=== PATIENT | male | born 1945 | race Asian ===

== ENCOUNTER 2023-12-24 16:23 | Inpatient (IN) | payer OTHER ==
[~2023-12-24] VITALS: Ht 165.1 cm; Wt 56.7 kg
[2023-12-24 16:26] VITALS: BP 158/62; PULSE 74; RESP 18; TEMP 98; O2SAT 97
[2023-12-24 17:43] LABS: BASOPHILS % (AUTO) 0.2 % (0.0-2.0); EOSINOPHILS # (AUTO) 0.1 K/uL (0-0.4); EOSINOPHILS % (AUTO) 1.9 % (0.0-4.0); HEMATOCRIT 37.5 % (36-52); HEMOGLOBIN 12.6 g/dL (12.0-18.0); LYMPHOCYTES # (AUTO) 0.8 K/uL (2.0-11.5); LYMPHOCYTES % (AUTO) 13.2 % (20.5-51.1); MEAN CORPUSCULAR HEMOGLOBIN 32 pg (27-31); MEAN CORPUSCULAR HGB CONC 34 g/dL (33-37); MONOCYTES # (AUTO) 0.4 K/uL (0.8-1.0); MONOCYTES % (AUTO) 6.1 % (1.7-9.3); NEUTROPHILS # (AUTO) 4.5 K/uL (1.8-7.7); NEUTROPHILS % (AUTO) 78.6 % (42.2-75.2); PLATELET COUNT (AUTO) 110 K/uL (140-450); RED BLOOD CELL COUNT(AUTO) 3.95 MIL/uL (4.20-6.10); RED CELL DISTRIBUTION WIDTH 13.6 % (11.6-13.7); WHITE BLOOD COUNT (AUTO) 5.8 K/uL (4.8-10.8)
[2023-12-24 18:03] LABS: MAGNESIUM 1.9 mg/dL (1.8-2.4)
[2023-12-24] MEDS ORDERED: ONDANSETRON 4 MG/2 ML VIAL IVP PRN (18:50)
[2023-12-24] MEDS ORDERED: ACETAMINOPHEN 325 MG TAB PO PRN (18:50)
[2023-12-24] MEDS: NACL 0.9% 1,000 ML IV SCH (18:50)
[2023-12-24] MEDS ORDERED: DEXTROSE 50% 50 ML SYR IVP PRN (18:55)
[2023-12-24] MEDS: ASPIRIN 325 MG TAB PO ONE (19:11)
[2023-12-24 19:35] LABS: ANION GAP 13.3 (8-16); CALCIUM 8.8 mg/dL (8.5-10.1); CARBON DIOXIDE 26.7 mmol/L (21-32); CHLORIDE 105 mmol/L (98-107); CREATININE 1.2 mg/dL (0.6-1.3); GLUCOSE 127 mg/dL (74-106); SODIUM SERUM 141 mmol/L (136-145); UREA NITROGEN, BLOOD 37 mg/dL (7-18)
[2023-12-24] MEDS: BLOOD GLUCOSE MONITORING 1 DEV DEV FS SCH (21:59)
[2023-12-24] MEDS ORDERED: METF-346 PO (22:06)
[2023-12-24] MEDS ORDERED: [UNRECOGNIZED DRUG - OTHER] PO (22:06)
[2023-12-24] MEDS ORDERED: APIX2.5 PO (22:06)
[2023-12-24] MEDS ORDERED: AMLO5TAB PO (22:06)
[2023-12-24] MEDS ORDERED: LOSA-272 PO (22:06)
[2023-12-24] MEDS ORDERED: TAMS0.4C96 PO (22:09)
[2023-12-24] MEDS ORDERED: MIRA25TE PO (22:09)
[2023-12-24] MEDS ORDERED: ATOR20TA PO (22:09)
[2023-12-24] MEDS ORDERED: ZYL300 PO (22:09)
[2023-12-24 22:10] VITALS: BP 154/72; PULSE 60; RESP 18; TEMP 96.9; O2SAT 97; O2SAT 98
[2023-12-24 22:20] VITALS: PULSE 60
[2023-12-25] VITALS (7 sets, daily range): BP systolic 119–175; BP diastolic 60–92; PULSE 57–65; RESP 16–18; TEMP 97–98.1; O2SAT 97–99
[2023-12-25] MEDS: INSULIN LISPRO SLIDING SCALE 100 UNITS/ML VIAL SUBQ PRN (12:21)
[2023-12-25] MEDS ORDERED: [UNRECOGNIZED DRUG - OTHER] PO SCH (21:00)
[2023-12-25] MEDS: ATORVASTATIN 20 MG TAB PO SCH (21:20)
[2023-12-25] MEDS: APIXABAN 2.5 MG TAB PO SCH (21:21)
[2023-12-26] VITALS (7 sets, daily range): BP systolic 104–171; BP diastolic 65–83; PULSE 60–83; RESP 16–18; TEMP 97–98.6; O2SAT 94–100
[2023-12-26] MEDS: amLODIPine 5 MG TAB PO SCH (06:14)
[2023-12-26] MEDS: allopurinoL 100 MG TAB PO SCH (08:43)
[2023-12-26] MEDS: LOSARTAN 50 MG TAB PO SCH (08:43)
[2023-12-26] MEDS: TAMSULOSIN 0.4 MG CAP PO SCH (08:44)
[2023-12-26] MEDS ORDERED: amLODIPine 5 MG TAB PO SCH (09:00)
[2023-12-26] MEDS ORDERED: allopurinoL 300 MG TAB PO SCH (09:00)
[2023-12-26] MEDS ORDERED: GABAPENTIN 100 MG CAP PO SCH (09:00)
[2023-12-26] MEDS: PATIENTS OWN TABLET PO SCH (11:24)
== END 2023-12-26 20:00 | disposition home health service (06) | DRG 641 ==
LOC: MED 16:23 → MTU 18:51
PROVIDERS: ADMIT Family Medicine; ATTEND Family Medicine
DX: E86.0 Dehydration (principal); E44.0 Moderate protein-calorie malnutrition; I10 Essential (primary) hypertension; Z79.82 Long term (current) use of aspirin; Z79.899 Other long term (current) drug therapy; Z68.20 Body mass index [BMI] 20.0-20.9, adult
CPT/HCPCS: 36415; 70450; 71045; 80048; 82948; 83735; 84484; 85025; 87081; 93005; 93880; 97112; 97116; 97163-GP; 97530; J1815; Q0092